=== PATIENT | male | born 1960 | race African-American/Black ===

== ENCOUNTER 2016-09-25 06:39 | Observation (INO) | payer OTHER ==
[2016-09-25] MEDS ORDERED: IPRATROPIUM-ALBUTEROL 3 ML NEB INHALATION STA (06:51)
[2016-09-25] MEDS ORDERED: methylPREDNISolone SOD SUCCI 125 MG/2 ML VIAL IV STA (06:51)
[2016-09-25] MEDS ORDERED: SODIUM CHLORIDE 0.9% 1,000 ML IV STA ×2 (06:51→07:46)
--- NOTE | 2016-09-25 06:56 | ED ---
SOB HPI - General Source: patient, RN notes reviewed Mode of arrival: ambulatory Limitations: no limitations - History of Present Illness MD Complaint: shortness of breath, chest pain <Pepe Thomas - Last Filed: 09/25/16 06:56> <Francisco Art - Last Filed: 09/25/16 10:16> - General Chief Complaint: Shortness of Breath Stated Complaint: SOB Time Seen by Provider: 09/25/16 06:45 - History of Present Illness Initial Comments: This is a 56-year-old male with history of COPD and a history of a aortic dissection status post repair in April of last year who states she's had shortness of breath for both last week. He has had a nonproductive cough also does have a headache he relates this to his COPD and his ALLERGIES act up. His chest tightness he denies any fevers chills sweats. Symptoms are not at all similar to what he had was dissection. He denies any other complaints he does have medication at home is not helping (Pepe Thomas) - Related Data Home Medications Medication Instructions Recorded Confirmed Carvedilol [Coreg] 12.5 mg PO Q12H 10/03/15 09/25/16 Furosemide [Lasix] 40 mg PO DAILY 10/03/15 09/25/16 Lisinopril 40 mg PO DAILY 10/03/15 09/25/16 amLODIPine [Norvasc] 5 mg PO DAILY 03/12/16 09/25/16 Aspirin EC [Ecotrin Low Dose] 81 mg PO DAILY 09/25/16 09/25/16 Atorvastatin [Lipitor] 20 mg PO HS 09/25/16 09/25/16 Beclomethasone Dipropionate [Qvar 1 puff INHALATION RT-BID 09/25/16 09/25/16 80 mcg] Cetirizine HCl [Zyrtec] 10 mg PO DAILY 09/25/16 09/25/16 Ipratropium [place] [Atrovent Hfa] 2 puff INHALATION RT-QID 09/25/16 09/25/16 Previous Rx's Medication Instructions Recorded Nitroglycerin Sl Tabs [Nitrostat] 0.4 mg SUBLINGUAL Q5M PRN #0 tab 03/17/16 Allergies Allergy/AdvReac Type Severity Reaction Status Date / Time No Known Allergies Allergy Verified 09/25/16 07:56 Review of Systems ROS Other: All systems not noted in ROS Statement are negative. <Pepe Thomas - Last Filed: 09/25/16 06:56> ROS Other: All systems not noted in ROS Statement are negative. <Francisco Art - Last Filed: 09/25/16 10:16> ROS Statement: Those systems with pertinent positive or pertinent negative responses have been documented in the HPI. Past Medical History Past Medical History: Asthma, Coronary Artery Disease (CAD), Chest Pain / Angina , Heart Failure, COPD, Hypertension, Myocardial Infarction (SC) Additional Past Medical History / Comment(s): 05/05/15 Pt presented to [facility] ER with back pain radiating around to front "core pain" which started last nite. He noticed some difficulty urinating. He has nausea and one episode of vomiting. He is admitted with clinical impression of acute pyelonephritis, acute renal failure, elevated troponin. Other HX: 10/06/14 admission to [facility] with NSTEMI possibly, severe nonischemic cardiomyopathy, chronic systolic CHF- echo at this time showed EF 35-40% with global hypokinesis. Pt denies these histories, however they are in past medical records. Other hx pt agrees with: COPD, tracheobroncitis, vertigo, heart murmur. Last Myocardial Infarction Date:: ?2014? History of Any Multi-Drug Resistant Organisms: None Reported Past Surgical History: Heart Catheterization Additional Past Surgical History / Comment(s): 10/06/14 cardiac cath, circumcision age 19. Past Anesthesia/Blood Transfusion Reactions: No Reported Reaction Additional Past Anesthesia/Blood Transfusion Reaction / Comment(s): Pt states he has never received blood. Past Psychological History: No Psychological Hx Reported Smoking Status: Current every day smoker Past Alcohol Use History: Occasional Past Drug Use History: Cocaine, Heroin, Marijuana - Past Family History Brother(s) Family Medical History: No Reported History Sister(s) Family Medical History: No Reported History Daughter(s) Family Medical History: No Reported History Mother Family Medical History: Congestive Heart Failure (CHF), Myocardial Infarction ( SC) Additional Family Medical History / Comment(s): Mother at age 34 in her sleep. Father Family Medical History: Cancer, Prostate Disorder Additional Family Medical History / Comment(s): prostate cancer and another type he getting chemo for but not sure what type. <Pepe Thomas - Last Filed: 09/25/16 06:56> General Exam Limitations: no limitations General appearance: alert, anxious Head exam: Present: atraumatic, normocephalic, normal inspection Eye exam: Present: normal appearance, PERRL, EOMI. Absent: scleral icterus, conjunctival injection, periorbital swelling ENT exam: Present: normal exam, mucous membranes moist Neck exam: Present: normal inspection. Absent: tenderness, meningismus, lymphadenopathy Respiratory exam: Present: decreased breath sounds. Absent: respiratory distress, wheezes, rales, rhonchi, stridor Cardiovascular Exam: Present: regular rate, normal rhythm, normal heart sounds. Absent: systolic murmur, diastolic murmur, rubs, gallop, clicks GI/Abdominal exam: Present: soft, normal bowel sounds. Absent: distended, tenderness, guarding, rebound, rigid Extremities exam: Present: normal inspection, full ROM, normal capillary refill. Absent: tenderness, pedal edema, joint swelling, calf tenderness Back exam: Present: normal inspection Neurological exam: Present: alert, oriented X3, CN II-XII intact Psychiatric exam: Present: normal affect, normal mood Skin exam: Present: warm, dry, intact, normal color. Absent: rash <Pepe Thomas - Last Filed: 09/25/16 06:56> <Francisco Art - Last Filed: 09/25/16 10:16> - General Exam Comments Initial Comments: This is a well-developed well-nourished awake alert oriented x 3 male (Pepe Thomas) Course <Pepe Thomas - Last Filed: 09/25/16 06:56> <Francisco Art - Last Filed: 09/25/16 10:16> Vital Signs 09/25/16 09/25/16 09/25/16 06:42 07:14 07:21 Temperature 97.5 F L Pulse Rate 88 81 78 Respiratory 22 18 Rate Blood Pressure 162/98 175/89 O2 Sat by Pulse 98 99 Oximetry 09/25/16 09/25/16 09/25/16 07:28 07:43 08:14 Temperature Pulse Rate 78 70 65 Respiratory 18 16 Rate Blood Pressure 142/87 126/71 O2 Sat by Pulse 98 99 Oximetry 09/25/16 08:44 Temperature Pulse Rate 59 L Respiratory 16 Rate Blood Pressure 145/74 O2 Sat by Pulse 100 Oximetry - Reevaluation(s) Reevaluation #1: 09/25/16 06:56 The patient care will be endorsed to Dr. Art who will make the final disposition is done at our shift change at 7 AM (Pepe Thomas) Medical Decision Making - EKG Data -: EKG Interpreted by Mn EKG shows normal: sinus rhythm (Sinus rhythm rate of 86. Interval 1:30 QRS duration 78 daily since QTC of 388/464 possible left atrial enlargement nonspecific ST configuration artifact is present) <Pepe Thomas - Last Filed: 09/25/16 06:56> - Lab Data Result diagrams: 09/25/16 06:56 09/25/16 06:56 <Francisco Art - Last Filed: 09/25/16 10:16> - Medical Decision Making chest x-ray shows COPD. Patient had a high d-dimer slightly CAT scan of the chest did not show any evidence of PE. (Francisco Art) - Lab Data Lab Results 09/25/16 09/25/16 09/25/16 Range/Units 06:56 06:56 06:56 WBC 7.4 (3.8-10.6) k/uL RBC 4.48 (4.30-5.90) m/uL Hgb 13.4 (13.0-17.5) gm/dL Hct 41.4 (39.0-53.0) % MCV 92.5 (80.0-100.0) fL MCH 29.9 (25.0-35.0) pg MCHC 32.3 (31.0-37.0) g/dL RDW 12.4 (11.5-15.5) % Plt Count 215 (150-450) k/uL Neutrophils % 37 % Lymphocytes % 44 % Monocytes % 5 % Eosinophils % 10 % Basophils % 1 % Neutrophils # 2.8 (1.3-7.7) k/uL Lymphocytes # 3.2 (1.0-4.8) k/uL Monocytes # 0.4 (0-1.0) k/uL Eosinophils # 0.7 (0-0.7) k/uL Basophils # 0.1 (0-0.2) k/uL PT (9.0-12.0) sec INR (<1.1) APTT (22.0-30.0) sec D-Dimer (<0.60) mg/L FEU Sodium 141 (137-145) mmol/L Potassium 4.6 (3.5-5.1) mmol/L Chloride 106 (98-107) mmol/L Carbon Dioxide 24 (22-30) mmol/L Anion Gap 11 mmol/L BUN 24 H (9-20) mg/dL Creatinine 1.52 H (0.66-1.25) mg/dL Est GFR (MDRD) Af Amer 58 (>60 ml/min/1.73 sqM) Est GFR (MDRD) Non-Af 48 (>60 ml/min/1.73 sqM) Glucose 123 H (74-99) mg/dL Calcium 9.4 (8.4-10.2) mg/dL Magnesium 2.0 (1.6-2.3) mg/dL Total Bilirubin 1.4 H (0.2-1.3) mg/dL AST 30 (17-59) U/L ALT 24 (21-72) U/L Alkaline Phosphatase 61 (38-126) U/L Total Creatine Kinase 91 (55-170) U/L CK-MB (CK-2) 1.7 (0.0-2.4) ng/mL CK-MB (CK-2) Rel Index 1.9 Troponin I <0.012 (0.000-0.034) ng/mL NT-Pro-B Natriuret Pep pg/mL Total Protein 7.9 (6.3-8.2) g/dL Albumin 4.4 (3.5-5.0) g/dL 09/25/16 09/25/16 Range/Units 06:56 06:56 WBC (3.8-10.6) k/uL RBC (4.30-5.90) m/uL Hgb (13.0-17.5) gm/dL Hct (39.0-53.0) % MCV (80.0-100.0) fL MCH (25.0-35.0) pg MCHC (31.0-37.0) g/dL RDW (11.5-15.5) % Plt Count (150-450) k/uL Neutrophils % % Lymphocytes % % Monocytes % % Eosinophils % % Basophils % % Neutrophils # (1.3-7.7) k/uL Lymphocytes # (1.0-4.8) k/uL Monocytes # (0-1.0) k/uL Eosinophils # (0-0.7) k/uL Basophils # (0-0.2) k/uL PT 11.1 (9.0-12.0) sec INR 1.1 (<1.1) APTT 29.2 (22.0-30.0) sec D-Dimer 3.40 H (<0.60) mg/L FEU Sodium (137-145) mmol/L Potassium (3.5-5.1) mmol/L Chloride (98-107) mmol/L Carbon Dioxide (22-30) mmol/L Anion Gap mmol/L BUN (9-20) mg/dL Creatinine (0.66-1.25) mg/dL Est GFR (MDRD) Af Amer (>60 ml/min/1.73 sqM) Est GFR (MDRD) Non-Af (>60 ml/min/1.73 sqM) Glucose (74-99) mg/dL Calcium (8.4-10.2) mg/dL Magnesium (1.6-2.3) mg/dL Total Bilirubin (0.2-1.3) mg/dL AST (17-59) U/L ALT (21-72) U/L Alkaline Phosphatase (38-126) U/L Total Creatine Kinase (55-170) U/L CK-MB (CK-2) (0.0-2.4) ng/mL CK-MB (CK-2) Rel Index Troponin I (0.000-0.034) ng/mL NT-Pro-B Natriuret Pep 932 pg/mL Total Protein (6.3-8.2) g/dL Albumin (3.5-5.0) g/dL Disposition <Pepe Thomas - Last Filed: 09/25/16 06:56> Time of Disposition: 10:16 <Francisco Art - Last Filed: 09/25/16 10:16> Clinical Impression: Acute exacerbation of chronic obstructive airways disease Disposition: ADMITTED IP TO THIS HOSP Referrals: Wenceslao Coles MD [Primary Care Provider] - 1-2 days
[2016-09-25 07:17] LABS: Basophils # (A) 0.1 k/uL (0-0.2); Basophils % (A) 1 %; CH 29.9; CHCM 32.4; Eosinophils # (A) 0.7 k/uL (0-0.7); Eosinophils % (A) 10 %; HCT 41.4 % (39.0-53.0); HDW 2.31; HGB 13.4 gm/dL (13.0-17.5); Luc # (Auto) 0.24; Luc % (Auto) 3; Lymphocytes # (A) 3.2 k/uL (1.0-4.8); Lymphocytes % (A) 44 %; MCH 29.9 pg (25.0-35.0); MCHC 32.3 g/dL (31.0-37.0); MCV 92.5 fL (80.0-100.0); Mean Platelet Volume 7.2; Monocytes # (A) 0.4 k/uL (0-1.0); Monocytes % (A) 5 %; Neutrophils # (A) 2.8 k/uL (1.3-7.7); Neutrophils % (A) 37 %; RBC 4.48 m/uL (4.30-5.90); RDW 12.4 % (11.5-15.5); WBC 7.4 k/uL (3.8-10.6); WBC (Perox) 7.28
[2016-09-25 07:26] LABS: Calcium 9.4 mg/dL (8.4-10.2); Total Bilirubin 1.4 mg/dL (0.2-1.3); Total Protein 7.9 g/dL (6.3-8.2)
[2016-09-25 07:27] LABS: INR 1.1 (<1.1); Partial Thromboplastin Time 29.2 sec (22.0-30.0); Prothrombin Time 11.1 sec (9.0-12.0)
[2016-09-25 07:32] LABS: Potassium 4.6 mmol/L (3.5-5.1)
--- NOTE | 2016-09-25 07:33 | XR ---
EXAMINATION TYPE: XR chest 2V DATE OF EXAM: 09/25/2016 HISTORY: difficulty breathing. REFERENCE: Previous study dated 03/15/2016. FINDINGS: There has been a midline sternotomy. Surgical clips project over the right upper lobe. The lungs are overinflated but clear. Pleural spaces are clear. The heart is not enlarged. IMPRESSION: COPD.
[2016-09-25 07:38] LABS: Creatine Kinase 91 U/L (55-170)
[2016-09-25] MEDS ORDERED: ONDANSETRON 4 MG/2 ML VIAL IVP STA (07:46)
[2016-09-25] MEDS ORDERED: HYDROmorphone 1 MG/ML 1 ML SYRINGE IVP STA (07:46)
[2016-09-25 07:50] LABS: Creatine Kinase MB 1.7 ng/mL (0.0-2.4); Troponin I <0.012 ng/mL (0.000-0.034)
[2016-09-25] MEDS ORDERED: RX INFO: IV CONTRAST WAS GIVEN 1 EACH MISC MISCELLANE PRN (08:40)
[2016-09-25] MEDS ORDERED: SODIUM CHLORIDE 0.9% 1,000 ML IV ONE (08:41)
--- NOTE | 2016-09-25 09:58 | CT ---
EXAMINATION TYPE: CT chest angio for PE DATE OF EXAM: 09/25/2016 COMPARISON: CTA chest March 12, 2016 HISTORY: SOB and elevated d-dimer, history of aorta repair CT DLP: 408.6 mGycm. Automated Exposure Control for Dose Reduction was Utilized. CONTRAST: CTA scan of the thorax is performed with IV Contrast, patient injected with 90 mL of Visipaque 320, p ulmonary embolism protocol. MIP Images are created on CT scanner and reviewed. FINDINGS: LUNGS: Underlying emphysematous change is redemonstrated. There is right apical scarring. There is no suspicious consolidation or groundglass opacity. No concerning parenchymal nodule or mass is present . No pleural effusion or pneumothorax is seen. Mild central peribronchial thickening is redemonstrate d. MEDIASTINUM: There is satisfactory enhancement of the pulmonary artery and its branches, there is no CT evidence for pulmonary embolism. There are no greater than 1 cm hilar or mediastinal lymph nodes. No cardiomegaly or pericardial effusion is seen. There is left ventricular dilatation and hypertro phy redemonstrated causing mass effect on right ventricle. Sternotomy changes are again seen. There i s surgical change at aortic root and ascending aorta with patent stent graft redemonstrated at site o f aneurysm. No significant change from prior study is identified. Coronary artery calcification is re demonstrated. OTHER: Some multilevel spurring in the thoracic spine is redemonstrated. IMPRESSION: 1. No CT evidence for pulmonary embolism. 2. No suspicious new acute pulmonary process. 3. Postsurgical changes involving ascending aorta with dilated and hypertrophic left ventricle causin g mass effect on right ventricle redemonstrated.
[2016-09-25 12:06] LABS: Glucose,Whole Blood 170 mg/dL (75-99)
[2016-09-25] MEDS: methylPREDNISolone SOD SUCCI 125 MG/2 ML VIAL IV SCH ×3 (12:39→23:48)
[2016-09-25] MEDS: INSULIN LISPRO (humaLOG) 300 UNIT/3 ML VIAL SQ SCH ×3 (12:39→20:50)
[2016-09-25 13:53] LABS: Hemoglobin A1C 4.7 % (4.2-6.1)
[2016-09-25] MEDS: IPRATROPIUM-ALBUTEROL 3 ML NEB INHALATION PRN (15:32)
[2016-09-25 17:25] LABS: Glucose,Whole Blood 152 mg/dL (75-99)
[2016-09-25 20:40] LABS: Glucose,Whole Blood 183 mg/dL (75-99)
[2016-09-25] MEDS: MELATONIN 5 MG TABLET PO SCH (23:47)
[2016-09-26] MEDS: methylPREDNISolone SOD SUCCI 125 MG/2 ML VIAL IV SCH ×2 (05:55→12:36)
[2016-09-26 07:16] LABS: Glucose,Whole Blood 119 mg/dL (75-99)
[2016-09-26] MEDS: INSULIN LISPRO (humaLOG) 300 UNIT/3 ML VIAL SQ SCH ×4 (07:24→21:31)
[2016-09-26] MEDS: IPRATROPIUM-ALBUTEROL 3 ML NEB INHALATION PRN (07:26)
[2016-09-26] MEDS ORDERED: NITROGLYCERIN SL TABS 0.4 MG TAB SUBLINGUAL PRN (08:35)
[2016-09-26] MEDS: LISINOPRIL 20 MG TAB PO SCH (09:15)
[2016-09-26] MEDS: LORATADINE 10 MG TAB PO SCH (09:16)
[2016-09-26] MEDS: ASPIRIN 81 MG CHEW PO SCH (09:16)
[2016-09-26] MEDS: FUROSEMIDE 40 MG TAB PO SCH (09:16)
[2016-09-26] MEDS: CARVEDILOL 12.5 MG TAB PO SCH ×2 (09:16→17:35)
[2016-09-26] MEDS: amLODIPine 5 MG TAB PO SCH (09:16)
[2016-09-26 12:27] LABS: Glucose,Whole Blood 131 mg/dL (75-99)
--- NOTE | 2016-09-26 12:31 | HP ---
DATE OF ADMISSION: CHIEF COMPLAINT: A 56-year-old white male with shortness of breath, chest pain. HISTORY OF PRESENT ILLNESS: This 56-year-old white male with a history of smoking, aortic dissection status post repair in April of last year with shortness of breath for the past week, nonproductive cough. He says it is probably due to COPD, made worse by allergies this spring. Symptoms were not similar to what his dissection was. CT of the chest did not show any evidence of any dissection issues. HOME MEDICATIONS: 1. He is on Coreg 12.5 b.i.d. 2. Lasix 40 mg daily. 3. Lisinopril 40 mg daily. 4. Norvasc 5 mg daily. 5. Aspirin 81 daily. 6. Lipitor 20 daily. 7. Qvar 80 one puff b.i.d. 8. Zyrtec 10 daily. 9. Atrovent 2 puffs q.i.d. ALLERGIES: No known drug allergies. REVIEW OF SYSTEMS: Fourteen-point review of systems negative except for as mentioned in HPI. PAST MEDICAL HISTORY: Asthma, COPD, coronary artery disease, aortic dissection repair, hypertension, myocardial infarction, history of pyelonephritis and renal failure back in 2014, non-STEMI, severe ischemic cardiomyopathy, chronic systolic CHF, 35% to 40% ejection fraction at that time, history of COPD, tracheobronchitis, vertigo, heart murmur. PAST SURGICAL HISTORY: Heart catheterization. DRUG HISTORY: Cocaine, heroin and marijuana. A current every day smoker. Brother and sister are healthy. Daughter healthy. Mother CHF, myocardial infarction. Father prostate disorder. PHYSICAL EXAM: Vital signs are reviewed. CONSTITUTIONAL: He is alert, in no acute distress. CARDIOVASCULAR: S1, S2. LUNGS: Show scattered wheeze x4. HEMATOLOGIC: Negative Homans. PSYCH: Fair mood and affect. NEUROLOGIC: Alert and oriented x3. INTEGUMENT: Skin dry and intact Vital signs show temperature 97.5, pulse 78 to 88, blood pressure is 160s to 170s over 80s to 90s, O2 sat is 98% to 99% on 2 L. EKG shows sinus rhythm. CT of the chest is as mentioned above. BUN 24, creatinine 1.52. Chest x-ray ( ) chest is negative. ASSESSMENT: 1. Acute chronic obstructive pulmonary disease exacerbation. 2. Acute on chronic renal insufficiency stage III. 3. Hypertension. 4. Status post aortic dissection repair. 5. Possible some mild congestive heart failure. 6. History of systolic ischemic cardiomyopathy. PLAN: IV steroids, updraft treatments, pulmonary consult. Please see further orders.
--- NOTE | 2016-09-26 12:33 | P.PN ---
Subjective 56 show male presented to the emergency room on the day of admission with a chief complaint of developing shortness of breath. Patient stated it onset 1 week prior. He feels like he's been exposed to a lot of ALLERGIES is concerned also there may be mold in his apartment seen in the emergency room did note the blood pressure was elevated 175/89 heart rate in the 80s afebrile patient did have a CAT scan of his chest in the emergency room and showed no evidence for a pulmonary emboli. There was no suspicious new acute pulmonary process. Postsurgical changes involving the ascending aorta were noted patient was seen and evaluated and admitted to the attending with the pulmonary consultation requested Objective - Vital Signs Vital signs: Vital Signs Temp 97.3 F L 09/26/16 07:00 Pulse 88 09/26/16 07:38 Resp 20 09/26/16 07:28 BP 145/87 09/26/16 07:00 Pulse Ox 94 L 09/26/16 07:00 Intake & Output 09/25/16 09/26/16 09/26/16 18:59 06:59 18:59 Intake Total 225 Balance 225 Intake: IV 225 Sodium Chloride 0.9% 1, 225 000 ml @ 75 mls/hr IV . [id number] STA Rx#:[id number] Other: # Voids 1 2 # Bowel Movements 0 - Exam GENERAL APPEARANCE: 56-year-old Afro-[place] male patient is alert, oriented, in no acute distress. VITAL SIGNS: Reviewed HEENT: Head is normocephalic and atraumatic. Pupils are equal and reactive. The nares are patent. Oropharynx is clear without lesions. NECK: Supple without lymphadenopathy. Traches midline. HEART: S1, S2. Regular rate and rhythm. No murmur noted denying chest pain LUNGS: No crackles or wheezes are heard. Adequate air entry bilaterally no conversational dyspnea noted no cough noted on room air sats are 94% ABDOMEN: Soft, nontender, nondistended with good bowel sounds. No peritoneal signs. No palpable organomegaly or masses. EXTREMITIES: Normal skin color and turgor. No cyanosis, rash, ulceration, clubbing or edema. Radial pedal pulses are 2/4 bilaterally. NEUROLOGICAL: No focal deficits. Strength and sensation are grossly intact. - Labs CBC & Chem 7: 09/25/16 06:56 09/25/16 06:56 Labs: Abnormal Lab Results - Last 24 Hours (Table) 09/25/16 09/25/16 09/26/16 Range/Units 17:14 20:39 06:57 POC Glucose (mg/dL) 152 H 183 H 119 H (75-99) mg/dL Assessment and Plan Plan: Impression Present on admission shortness of breath suspect due to an exacerbation of COPD Present on admission elevated d-dimer with a CAT scan of the chest showing no evidence of a pulmonary emboli Seasonal ALLERGIES History of Exposure to mold History of aortic dissection status post repair in April 2015 History of COPD Current every day smoker Plan Patient to be evaluated by pulmonary service defer to possible outpatient workup pulmonary function studies patient states he's never been to a mold finisher Resume home meds as appropriate Continue current aerosol bronchodilators Taper the steroids Prepped for probable discharge in the next 24 hours DVT and GI prophylaxis advised patient to stop smoking cigarettes The above dictated assessment and findings were discussed with dr lopez Impression and the plan of care have been dictated as directed. Ramonita Siu nurse practitioner acting as a scribe for dr lopez
[2016-09-26] MEDS: IPRATROPIUM 0.5 MG/2.5 ML NEBU INHALATION SCH ×3 (13:10→19:59)
[2016-09-26 17:03] LABS: Glucose,Whole Blood 130 mg/dL (75-99)
--- NOTE | 2016-09-26 17:42 | CONS ---
DATE OF CONSULTATION: This patient is a 56-year-old male with a history of asthma since his childhood. He subsequently was told that he had COPD as well. He has a known history of smoking and came into the ED with increasing shortness of breath for about a week's duration. He believes he may have been exposed to mold in his house. He had been wheezing. He had no fever or chills. Past medical history is positive for: 1. Asthma since his childhood. 2. History of coronary artery disease. 3. History of aortic dissection diagnosed about a year and a half ago, for which he had emergent surgery. 4. History of acute renal failure in the past. 5. Acute pyelonephritis. 6. History of severe non-ischemic cardiomyopathy with an EF of 35% to 40% with global hypokinesis. 7. History of cardiac catheterization. 8. Circumcision. FAMILY HISTORY: Positive for CHF in his mother. Father has a history of prostate cancer and another type of cancer. SOCIAL HISTORY: Patient has a known history of smoking. He does not drink alcohol excessively. Medications prior to admission were: 1. Lipitor. 2. Norvasc. 3. Nitrostat. 4. Zyrtec. 5. Ecotrin. 6. Lisinopril. 7. Atrovent HFA. 8. Lasix. 9. Coreg. 10. Qvar. REVIEW OF SYSTEMS: Noncontributory. On physical examination, patient is sitting up in bed. He is in no respiratory distress. Respiratory rate is 18, pulse rate of 90, blood pressure 145/87. Oxygen saturation on room air is 94%. HEENT reveals pupils that are equal. No jugular venous distention. Chest reveals decreased breath sounds, prolonged expiration. No clear wheeze. Cardiovascular system is in S1, S2. ABDOMEN: Soft. There is no pedal edema. White count is 7.4, hemoglobin 13.4. Sodium 141, potassium 4.6, chloride 106, bicarb 24. BUN 24, creatinine 1.52. Eosinophil count is 700. CT scan of the chest was done on 09/25/2016. That does not show any discrete infiltrate. It does show postsurgical changes and hypertrophic left ventricle. There is right apical scarring as well. IMPRESSION AT THIS TIME: 1. Severe asthma with acute exacerbation. 2. Chronic obstructive pulmonary disease is likely. 3. Nicotine dependence. At this point in time, would keep the patient on IV steroids, add Singulair and aerosolized steroids. Check an allergy profile. Increase his activity level. We will be happy to see him in the outpatient setting if need be. He was counseled on the need to quit smoking.
[2016-09-26] MEDS: BUDESONIDE 0.5 MG/2 ML NEBU INHALATION SCH (19:59)
[2016-09-26 20:56] LABS: Glucose,Whole Blood 142 mg/dL (75-99)
[2016-09-26] MEDS ORDERED: MONTELUKAST 10 MG TAB PO SCH (21:00)
[2016-09-26] MEDS ORDERED: methylPREDNISolone SOD SUCCI 40 MG/ML 1 ML VIAL IV SCH (21:00)
[2016-09-26] MEDS ORDERED: ATORVASTATIN 20 MG TAB PO SCH (21:00)
[2016-09-26] MEDS: FAMOTIDINE 20 MG TAB PO SCH (21:30)
[2016-09-26] MEDS: HEPARIN SODIUM,PORCINE 5,000 UNIT/ML 1 ML VIAL SQ SCH (21:44)
[2016-09-26] MEDS: MELATONIN 5 MG TABLET PO SCH (23:50)
[2016-09-27 07:15] LABS: Glucose,Whole Blood 111 mg/dL (75-99)
[2016-09-27 07:53] VITALS: BP 145/97; RESP 18; TEMP 97
[2016-09-27] MEDS: INSULIN LISPRO (humaLOG) 300 UNIT/3 ML VIAL SQ SCH (08:04)
[2016-09-27] MEDS: FUROSEMIDE 40 MG TAB PO SCH (08:06)
[2016-09-27] MEDS: CARVEDILOL 12.5 MG TAB PO SCH (08:06)
[2016-09-27] MEDS: ASPIRIN 81 MG CHEW PO SCH (08:06)
[2016-09-27] MEDS: LISINOPRIL 20 MG TAB PO SCH (08:06)
[2016-09-27] MEDS: LORATADINE 10 MG TAB PO SCH (08:06)
[2016-09-27] MEDS: HEPARIN SODIUM,PORCINE 5,000 UNIT/ML 1 ML VIAL SQ SCH (08:06)
[2016-09-27] MEDS: FAMOTIDINE 20 MG TAB PO SCH (08:06)
[2016-09-27] MEDS: amLODIPine 5 MG TAB PO SCH (08:07)
[2016-09-27] MEDS: BUDESONIDE 0.5 MG/2 ML NEBU INHALATION SCH (08:39)
[2016-09-27] MEDS: IPRATROPIUM 0.5 MG/2.5 ML NEBU INHALATION SCH (08:42)
[2016-09-27 08:55] VITALS: PULSE 74
[2016-09-27] MEDS ORDERED: predniSONE 20 MG TAB PO SCH (09:00)
--- NOTE | 2016-09-27 09:08 | P.DS ---
Providers Date of admission: 09/25/16 10:16 Expected date of discharge: 09/27/16 Attending physician: Chance Lopez Consults: 09/25/16 13:30 Consult Physician Urgent Consulting Provider: Marylou Ochoa Consult Reason/Comments: copd ? bronch for ? mold Do you want consulting provider notified?: Yes Primary care physician: [facility] Course: 56 show male presented to the emergency room on the day of admission with a chief complaint of developing shortness of breath. Patient stated it onset 1 week prior. He feels like he's been exposed to a lot of ALLERGIES is concerned also there may be mold in his apartment seen in the emergency room did note the blood pressure was elevated 175/89 heart rate in the 80s afebrile patient did have a CAT scan of his chest in the emergency room and showed no evidence for a pulmonary emboli. There was no suspicious new acute pulmonary process. Postsurgical changes involving the ascending aorta were noted patient was seen and evaluated and admitted to the attending with the pulmonary consultation requested There was a significant improvement in patient's clinical status it was felt to be appropriate to be discharged home Impression discharge diagnosis Impression Present on admission shortness of breath suspect due to an exacerbation of COPD Present on admission elevated d-dimer with a CAT scan of the chest showing no evidence of a pulmonary emboli Seasonal ALLERGIES History of Exposure to mold History of aortic dissection status post repair in April 2015 History of COPD Current every day smoker The above dictated assessment and findings were discussed with dr lopez Impression and the plan of care have been dictated as directed. Ramonita Siu nurse practitioner acting as a scribe for dr lopez Plan - Discharge Summary New Discharge Prescriptions: New methylPREDNISolone Dose Pack [Medrol Dose Pack] 4 mg PO DIRECTED #21 package Continue Lisinopril 40 mg PO DAILY Furosemide [Lasix] 40 mg PO DAILY Carvedilol [Coreg] 12.5 mg PO Q12H amLODIPine [Norvasc] 5 mg PO DAILY Nitroglycerin Sl Tabs [Nitrostat] 0.4 mg SUBLINGUAL Q5M PRN #0 tab PRN Reason: Chest Pain Beclomethasone Dipropionate [Qvar 80 mcg] 1 puff INHALATION RT-BID Ipratropium [place] [Atrovent Hfa] 2 puff INHALATION RT-QID Cetirizine HCl [Zyrtec] 10 mg PO DAILY Atorvastatin [Lipitor] 20 mg PO HS Aspirin EC [Ecotrin Low Dose] 81 mg PO DAILY Discharge Medication List Carvedilol [Coreg] 12.5 mg PO Q12H 10/03/15 [History] Furosemide [Lasix] 40 mg PO DAILY 10/03/15 [History] Lisinopril 40 mg PO DAILY 10/03/15 [History] amLODIPine [Norvasc] 5 mg PO DAILY 03/12/16 [History] Nitroglycerin Sl Tabs [Nitrostat] 0.4 mg SUBLINGUAL Q5M PRN #0 tab 03/17/16 [Rx] Aspirin EC [Ecotrin Low Dose] 81 mg PO DAILY 09/25/16 [History] Atorvastatin [Lipitor] 20 mg PO HS 09/25/16 [History] Beclomethasone Dipropionate [Qvar 80 mcg] 1 puff INHALATION RT-BID 09/25/16 [ History] Cetirizine HCl [Zyrtec] 10 mg PO DAILY 09/25/16 [History] Ipratropium [place] [Atrovent Hfa] 2 puff INHALATION RT-QID 09/25/16 [History] methylPREDNISolone Dose Pack [Medrol Dose Pack] 4 mg PO DIRECTED #21 package 09/27/16 [Rx] Follow up Appointment(s)/Referral(s): Wenceslao Coles MD [Primary Care Provider] - 1-2 days Discharge Disposition: HOME SELF-CARE
[2016-09-30 12:25] LABS: Alternaria alternata IgE <0.35 kU/L (<0.35); Asperg. fumagatus IgE <0.35 kU/L (<0.35); Asperg. fumagatus IgE Class CLASS 0; Birch(Com.Silvr) IgE Class CLASS 0; Cat Epith & Dander IgE 1.15 kU/L (<0.35); Cat Epith & Dander IgE Class CLASS II; Clad herbarum IgE <0.35 kU/L (<0.35); Clad herbarum IgE Class CLASS 0; Common Ragweed IgE Class CLASS II; Dermato. Pteronyssinus Class CLASS 0; Dermato. Pteronyssinus IgE <0.35 kU/L (<0.35); Dermato. farinae IgE <0.35 kU/L (<0.35); Dermato. farinae IgE Class CLASS 0; IgE (Allergen) 95.5 IU/mL (<114.0); Maple (Box Elder) IgE <0.35 kU/L (<0.35); Maple (Box Elder) IgE Class CLASS 0; Mountain Cedar IgE <0.35 kU/L (<0.35); Mountain Cedar IgE Class CLASS 0; Mouse Urine IgE Class CLASS 0; Mouse Urine Proteins,IgE <0.35 kU/L (<0.35); Mulberry IgE Class CLASS 0; Nettle IgE <0.35 kU/L (<0.35); Nettle IgE Class CLASS 0; Oak IgE <0.35 kU/L (<0.35); Penicillium notatum IgE Class CLASS 0; Rough Marshelder IgE 0.44 kU/L (<0.35); Rough Marshelder IgE Class CLASS I; Timothy Grass IgE 5.79 kU/L (<0.35); Timothy Grass IgE Class CLASS III; White Ash IgE Class CLASS 0
[2016-10-07 13:44] LABS: Alternaria tenius IgG 9.3 mcg/mL (< 13.6); Cladosporium herbarium IgG 78.5 mcg/mL (< 14.7); Phoma ssp. IgG 13.9 mcg/mL (< 6.6); Saccaharomospora viridis Not detected (Not detected); Saccaharopoly. rectivirgula Not detected (Not detected)
== END 2016-09-27 09:31 | disposition home or self-care (01) ==
LOC: EC 06:39 → INTOOBSV 10:16 → 4MS4W 10:16
PROVIDERS: ADMIT Family Medicine; ATTEND Family Medicine
DX: R06.02 Shortness of breath (principal); R07.9 Chest pain, unspecified; R51 Headache; J44.1 Chronic obstructive pulmonary disease with (acute) exacerbation; R79.89 Other specified abnormal findings of blood chemistry; J45.909 Unspecified asthma, uncomplicated; F17.200 Nicotine dependence, unspecified, uncomplicated; I25.5 Ischemic cardiomyopathy; I50.22 Chronic systolic (congestive) heart failure; I13.0 Hypertensive heart and chronic kidney disease with heart failure and stage 1 through stage 4 chronic kidney disease, or unspecified chronic kidney disease; N18.3 Chronic kidney disease, stage 3 (moderate); N28.9 Disorder of kidney and ureter, unspecified; I25.10 Atherosclerotic heart disease of native coronary artery without angina pectoris; Z79.899 Other long term (current) drug therapy; Z79.82 Long term (current) use of aspirin; Z79.51 Long term (current) use of inhaled steroids; I25.2 Old myocardial infarction; Z82.49 Family history of ischemic heart disease and other diseases of the circulatory system; Z77.120 Contact with and (suspected) exposure to mold (toxic)
CPT/HCPCS: 96376 ×2; 96361 ×3; 96374; 99285; 36415; 94640 ×5; 93005; 85379; 82103; 82785 ×2; 86003; 83880; 80053; 86001; 82104; 84443; 83036; 82550; 82553; 83735; 84484; 85025; 85610; 85730; 86609; 86606; 71020; 71275; G0378 ×3; J1644; J2920; J2930 ×2; Q9967

== ENCOUNTER → 2018-08-26 | Outpatient (CLI) | payer MEDICARE ==
--- NOTE | 2018-08-26 11:49 | CT ---
EXAMINATION TYPE: CT chest abdomen w con DATE OF EXAM: 08/26/2018 COMPARISON: Exams dating back to 05/05/2015 HISTORY: AAA CT DLP: 1059.00 mGycm. Automated Exposure Control for Dose Reduction was Utilized. CONTRAST: CT scan of the thorax and abdomen were performed with IV Contrast, patient injected with 100 ml mL of Isovue 300. FINDINGS: LUNGS: Paraseptal bulla are seen at the lung apices with moderate underlying centrilobular emphysemat ous change create minimal biapical pleural parenchymal scarring is also present. The lungs are grossl y clear, there is no concerning parenchymal mass or nodule identified. There is no pleural effusion or pneumothorax seen. The tracheobronchial tree is patent. VASCULAR: There is been surgical repair of the aortic arch, with high density seen on the prior imagi ng dating back to 03/12/2016 at the lateral aspect of the aortic arch. This is also subtly seen althou gh similar to the adjacent contrast attenuation. There is a normal variant direct origin of the left vertebral artery from the aortic arch. At the site of prior surgical intervention there is a linear i ntimal flap that is focal within the aortic arch partially seen on axial series 4 image 15 and confir med on coronal series 8 image 58. There are recent no prior exams available at this institution where contrast opacified the aortic arch to determine if this is chronic however on the exam of 2016 (08/16 this focal dissection was not present. In comparison to the exam of 2016 there is focal saccula r outpouching of the left lateral aspect of the ascending thoracic aorta with the appearance of a pen etrating atheromatous ulcer versus pseudoaneurysm with a narrow neck on coronal image 50 of series 8 is also seen on axial on series 4 image 20. The ulcer versus pseudoaneurysm measures 2.0 cm and the o utpouching projecting towards the aorticopulmonary window on image 23 measures 2.6 cm. The ascending thoracic aorta measures 5.1 cm in anterior posterior dimension overall measuring smaller than on the prior of 08/17/2015 possibly due to redistribution given the new left abnormal outpouching. The [place] lumen of the descending thoracic aorta has increased in size previously diminutive measuri ng 1.6 cm on the prior of 08/17/2015 and now approximately 2.6 cm. There are punctate foci of contrast seen surrounding the descending aorta such as on series 4 image 52 within the periaortic fluid colle ction relating to endoleak. Chronic dissection is seen of the abdominal aorta and addition to the periaortic fluid collection wit h 3 separate densities on series 4 image 79. In comparison to the most recent exam available at on although this was a chest examination the visualized upper abdominal aorta measured only 3.2 cm and anterior posterior dimension and now measures 3.7 cm at a similar location. In comparison to t he CT abdomen pelvis of 2016 without contrast the approximate anterior posterior dimension of the inf rarenal abdominal aorta on that exam measured 4.0 cm and today measures 6.1 cm area transverse dimens ion measures 5.9 cm. This begins at the level the renal arteries and extends to the bifurcation witho ut extent into the common iliac arteries however the common iliac arteries themselves are dilated mor e distally aneurysm on the left measuring 2.2 cm and on the right measuring 2.2 cm. LIVER/GB: No significant abnormality is appreciated. No cholelithiasis is seen. PANCREAS: No significant abnormality is seen. No pancreatic ductal dilatation. SPLEEN: No significant abnormality is seen. ADRENALS: No significant abnormality is seen. No focal thickening or nodularity. KIDNEYS: The left kidney is slightly atrophic in comparison to the size of the right kidney. The felicit[place] l arteries appear patent originating from the [place] aortic lumen. BOWEL: No dilated large or small bowel. LYMPH NODES: No greater than 1cm abdominal or pelvic lymph nodes are appreciated. OSSEOUS STRUCTURES: Median sternotomy wires are present. Mild multilevel degenerative change of the s pine. IMPRESSION: 1. Age indeterminant focal dissection of the aortic arch at the site of surgical resection that is fo sravanthi and localized to the aortic arch. 2. 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 3. There appears to be redistribution of the periaortic fluid collection/aneurysm of the ascending th oracic aorta with new left lateral focal outpouching towards the aorticopulmonary window and more conrado row caliber in an anterior posterior dimension than on the prior of 2016. 4. Findings concerning for endoleak of the descending thoracic aorta with numerous foci of contrast e xtending into the periaortic fluid collection. 5. Interval enlargement of the abdominal aortic aneurysm now measuring up to 6.1 x 5.9 cm with chroni c dissection and periaortic fluid collection. The anterior posterior dimension on the exam of 05/05/19 16 measured 4.0 cm. This was suboptimally evaluated at the time without contrast and appears to measu re 4.7 cm in transverse dimension on that exam. 6. 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 7. Findings 1-6 were discussed with the ordering physician's office (Dr. Sewell) by Dr. Long at 11:45 on 08/26/18.
== END | disposition home or self-care (01) ==
LOC: RADCTMAIN 08:49
PROVIDERS: ATTEND Internal Medicine Cardiovascular Disease
DX: I71.4 Abdominal aortic aneurysm, without rupture (principal); I71.00 Dissection of unspecified site of aorta; I72.3 Aneurysm of iliac artery; Z98.890 Other specified postprocedural states
CPT/HCPCS: 71260; 74160; Q9967

== ENCOUNTER 2018-09-04 18:09 | Emergency (ER) | payer MEDICARE, OTHER ==
[2018-09-04] MEDS ORDERED: IPRATROPIUM-ALBUTEROL 3 ML NEB INHALATION STA (18:37)
[2018-09-04] MEDS ORDERED: methylPREDNISolone SOD SUCCI 125 MG/2 ML VIAL IM STA (18:57)
[2018-09-04] MEDS ORDERED: ACETAMINOPHEN TAB 325 MG TAB PO STA (19:08)
--- NOTE | 2018-09-04 19:39 | XR ---
EXAMINATION TYPE: XR chest 2V DATE OF EXAM: 09/04/2018 COMPARISON: 09/25/2016 HISTORY: Chest tightness TECHNIQUE: Frontal and lateral views of the chest are obtained. FINDINGS: There is no heart failure nor confluent pneumonic infiltrate. There are sternal wires. Tho racic aorta is atheromatous. Bony thorax is intact. There are surgical clips over the right upper lob e. IMPRESSION: No active cardiopulmonary disease. Normal heart. No change.
--- NOTE | 2018-09-04 20:24 | ED ---
General Adult HPI - General Chief complaint: Shortness of Breath Stated complaint: SOB Time Seen by Provider: 09/04/18 18:37 Source: EMS, RN notes reviewed, old records reviewed Mode of arrival: EMS - History of Present Illness Initial comments: 58-year-old male patient passed no history of hypertension, COPD, asthma, aortic dissection status post graft presents to ED with 1 day of wheezing, shortness of breath. Patient reports that he was doing her work outside with a mask on and started expressing asthma exacerbation. Patient reports that he was wheezing and having some mild shortness of breath. Patient force of this feels similar to asthma that he has experienced in the past. Patient has a history complaining of a mild headache. Patient reports that he often expresses headaches and he has a asthma exacerbation. Patient denies worst headache of life. Patient states that headache was progressive onset, denies thunderclap. Patient states that is a pressure sensation intact occipital lobe region. Patient denies any changes in vision. Patient denies any other complaints. Patient denies any chest pain abdominal pain nausea vomiting or diarrhea. Systemic: Pt denies fatigue, myalgia, fever/chills, rash. Pt denies weakness, night sweats, weight loss. Neuro: Pt denies visual disturbances, syncope or pre-syncope. HEENT: Pt denies ocular discharge or irritation, otalgia, rhinorrhea, pharyngitis or notable lymphadenopathy. Cardiopulmonary: Pt denies chest pain, heart palpitations, dyspnea on exertion. Abdominal/GI: Pt denies abdominal pain, n/v/d. : Pt denies dysuria, burning w/ urination, frequency/urgency. Denies new onset urinary or bowel incontinence. MSK: Pt denies myalgia, loss of strength or function in extremities. Neuro: Pt denies new onset weakness, paresthesias. - Related Data Home Medications Medication Instructions Recorded Confirmed Carvedilol [Coreg] 12.5 mg PO Q12H 10/03/15 09/25/16 Furosemide [Lasix] 40 mg PO DAILY 10/03/15 09/25/16 Lisinopril 40 mg PO DAILY 10/03/15 09/25/16 amLODIPine [Norvasc] 5 mg PO DAILY 03/12/16 09/25/16 Aspirin EC [Ecotrin Low Dose] 81 mg PO DAILY 09/25/16 09/25/16 Atorvastatin [Lipitor] 20 mg PO HS 09/25/16 09/25/16 Beclomethasone Dipropionate [Qvar 1 puff INHALATION RT-BID 09/25/16 09/25/16 80 mcg] Cetirizine HCl [Zyrtec] 10 mg PO DAILY 09/25/16 09/25/16 Ipratropium [place] [Atrovent Hfa] 2 puff INHALATION RT-QID 09/25/16 09/25/16 Previous Rx's Medication Instructions Recorded Nitroglycerin Sl Tabs [Nitrostat] 0.4 mg SUBLINGUAL Q5M PRN #0 tab 03/17/16 methylPREDNISolone Dose Pack 4 mg PO DIRECTED #21 package 09/27/16 [Medrol Dose Pack] Albuterol Inhaler [Ventolin Hfa 1 - 2 puff INHALATION Q4-6H PRN #1 09/04/18 Inhaler] inhaler predniSONE 50 mg PO DAILY #4 tab 09/04/18 Allergies Allergy/AdvReac Type Severity Reaction Status Date / Time No Known Allergies Allergy Verified 09/25/16 07:56 Review of Systems ROS Statement: Those systems with pertinent positive or pertinent negative responses have been documented in the HPI. ROS Other: All systems not noted in ROS Statement are negative. Past Medical History Past Medical History: Asthma, Coronary Artery Disease (CAD), Chest Pain / Angina, Heart Failure, COPD, Hypertension, Myocardial Infarction (PA) Additional Past Medical History / Comment(s): Other HX: 10/06/14 admission to [facility] with NSTEMI possibly, severe nonischemic cardiomyopathy, chronic systolic CHF-echo at this time showed EF 35-40% with global hypokinesis. Pt denies t hese histories, however they are in past medical records. Other hx pt agrees with: COPD, tracheobroncitis, vertigo, heart murmur. Last Myocardial Infarction Date:: ?2014? History of Any Multi-Drug Resistant Organisms: None Reported Past Surgical History: Heart Catheterization Additional Past Surgical History / Comment(s): 04/2016 AORTIC DISECTION. 10/06/14 cardiac cath, circumcision age 19. COLONOSCOPY Past Anesthesia/Blood Transfusion Reactions: No Reported Reaction Additional Past Anesthesia/Blood Transfusion Reaction / Comment(s): Pt states he has never received blood. Past Psychological History: No Psychological Hx Reported Smoking Status: Former smoker Past Alcohol Use History: Rare Past Drug Use History: Cocaine, Heroin, Marijuana - Past Family History Brother(s) Family Medical History: No Reported History Sister(s) Family Medical History: Diabetes Mellitus Daughter(s) Family Medical History: No Reported History Mother Family Medical History: Congestive Heart Failure (CHF), Myocardial Infarction (PA) Additional Family Medical History / Comment(s): Mother at age 34 in her sleep. Father Family Medical History: Cancer, Prostate Disorder Additional Family Medical History / Comment(s): prostate cancer and . General Exam - General Exam Comments Initial Comments: Constitutional: NAD, AOX3, Pt has pleasant affect. HEENT: NC/AT, trachea midline, neck supple, no lymphadenopathy. Posterior pharynx non erythematous, without exudates. External ears appear normal, without discharge. Mucous membranes moist. Eyes PERRLA, EOM intact. There is no scleral icterus. No pallor noted. Cardiopulmonary: RRR, no murmurs, rubs or gallops, no JVD noted. Mild wheezing noted in anterior and posterior khoury after breathing treatment.. Lungs CTAB in anterior and posterior khoury. No peripheral edema. Abdominal exam: Abdomen soft and non-distended. Abdomen non-tender to palpation in all 4 quadrants. Bowel sounds active in LLQ. No hepatosplenomegaly. No ecchymosis Neuro: CN II-XII grossly intact. No nuchal rigidity. MSK: No posterior calf tenderness bilaterally, homans sign negative bilaterally. Posterior tibialis and radial pulse +2 bilaterally. Sensation intact in upper and lower extremities. Full active ROM in upper and lower extremities, 5/5 stregnth. Course Vital Signs 09/04/18 09/04/18 09/04/18 18:14 18:56 19:01 Temperature 98.5 F Pulse Rate 103 H 94 Respiratory 22 22 24 Rate Blood Pressure 157/94 O2 Sat by Pulse 95 Oximetry 09/04/18 09/04/18 19:11 21:23 Temperature 97.9 F Pulse Rate 96 82 Respiratory 20 18 Rate Blood Pressure 118/72 O2 Sat by Pulse 97 Oximetry Medical Decision Making - Medical Decision Making 58-year-old male patient passed no history of hypertension, COPD, asthma, aortic dissection status post graft presents to ED with 1 day of wheezing, shortness of breath. Patient reports that he was doing her work outside with a mask on and started expressing asthma exacerbation. Patient reports that he was wheezing and having some mild shortness of breath. Patient force of this feels similar t o asthma that he has experienced in the past. Patient has a history complaining of a mild headache. Patient reports that he often expresses headaches and he has a asthma exacerbation. Patient denies worst headache of life. Patient states that headache was progressive onset, denies thunderclap. Patient states that is a pressure sensation intact occipital lobe region. Patient denies any changes in vision. Patient denies any other complaints. Patient denies any chest pain abdominal pain nausea vomiting or diarrhea. Patient vital signs within except for limits, afebrile. Physical exam displayed wheezing which resolved after breathing treatment. EKG ordered by advanced triage displayed no significant change from prior EKG. Chest x-ray revealed no acute process. Patient doing much better after breathing treatment. No respiratory distress, no labored breathing. Patient headache resolved. A review of patient's recent imaging displayed a CT chest, abdomen and pelvis on 08/26/18. This displayed multiple findings including findings concerning for endoleak of the descending thoracic aorta. Patient states that he did speak with his nurse practitioner home assessments who recommended patient presented to [facility] where he had the initial surgery performed. Patient states that he did not present down to [facility] and has appointment scheduled with his nurse practitioner home assessments in approximately one week. Patient was recommended to be transferred to [facility] for further evaluation. On repeated history patient continues to deny any chest pain, abdominal pain. Patient will be transferred via EMS.. Patient will be transported via private vehicle to [facility]. Patient prescribed albuterol inhaler and oriented steroids for asthma exacerbation. Case discussed with Dr. Coronel Accepting physician Dr. Espinoza. - EKG Data -: EKG Interpreted by Me (and dr coronel ) EKG Comments: Ventricular rate 98, TX interval 140, QRS 86, QT/QTC 350/446. Normal sinus rhythm, possible left atrial enlargement, left ventricular hypertrophy. Nonspecific ST and mildly. Abnormal QRST angle. No significant change from prior EKG. Disposition Clinical Impression: Asthma exacerbation Disposition: OTHER INSTITUTION NOT DEFINED Condition: Serious Instructions (If sedation given, give patient instructions): Asthma (ED) Additional Instructions: Please drive directly down to [facility] in [facility] [place]. After discharge please take medication as directed for asthma exacerbation. Prescriptions: predniSONE 50 mg PO DAILY #4 tab Albuterol Inhaler [Ventolin Hfa Inhaler] 1 - 2 puff INHALATION Q4-6H PRN #1 inhaler PRN Reason: Cough Is patient prescribed a controlled substance at d/c from ED?: No Referrals: Wenceslao Coles MD [Primary Care Provider] - 1-2 days - Out of Hospital Transfer - Req. Specs Out of Hospital Transfer - Requested Specifics: Other Emergency Center ([facility])
[2018-09-04 21:23] VITALS: PULSE 82; RESP 18; TEMP 97.9
[2018-09-04 23:21] VITALS: BP 122/73
== END 2018-09-04 23:20 | disposition other institution (70) ==
LOC: EC 18:09
DX: J45.901 Unspecified asthma with (acute) exacerbation (principal); I25.119 Atherosclerotic heart disease of native coronary artery with unspecified angina pectoris; I11.0 Hypertensive heart disease with heart failure; I50.22 Chronic systolic (congestive) heart failure; I25.2 Old myocardial infarction; Z79.02 Long term (current) use of antithrombotics/antiplatelets; Z79.82 Long term (current) use of aspirin; Z79.899 Other long term (current) drug therapy; Z87.891 Personal history of nicotine dependence; Z95.5 Presence of coronary angioplasty implant and graft
CPT/HCPCS: 94640; 71046; 99285; 96372; J2930

== ENCOUNTER → 2018-12-24 | Outpatient (CLI) | payer MEDICARE ==
[2018-12-24 10:19] LABS: Prothrombin Time 10.8 sec (9.0-12.0)
[2018-12-24 10:49] LABS: Basophils # (A) 0.2 k/uL (0-0.2); Basophils % (A) 3 %; Eosinophils # (A) 0.4 k/uL (0-0.7); Eosinophils % (A) 6 %; HCT 40.1 % (39.0-53.0); HGB 12.8 gm/dL (13.0-17.5); Lymphocytes % (A) 35 %; MCH 29.8 pg (25.0-35.0); MCHC 31.9 g/dL (31.0-37.0); MCV 93.4 fL (80.0-100.0); Mean Platelet Volume 7.1; Monocytes # (A) 0.5 k/uL (0-1.0); Monocytes % (A) 8 %; Neutrophils # (A) 2.7 k/uL (1.3-7.7); Neutrophils % (A) 45 %; Platelet Count 218 k/uL (150-450); RBC 4.29 m/uL (4.30-5.90); WBC 5.9 k/uL (3.8-10.6)
[2018-12-24 17:47] LABS: African American GFR (CKD) 63.7 (60.0-200.0); Albumin 4.1 g/dL (3.80-4.90); Albumin/Globulin Ratio 1.58 (1.60-3.17); Anion Gap 9.1 mmol/L (4.00-12.00); BUN/Creat Ratio 13.57 Ratio (12.00-20.00); Calcium 8.9 mg/dL (8.7-10.3); Carbon Dioxide 24.9 mmol/L (21.6-31.8); Globulin 2.6 g/dL (1.6-3.3); Potassium 4.3 mmol/L (3.5-5.5); Total Bilirubin 1.4 mg/dL (0.2-1.2); Total Protein 6.7 g/dL (6.2-8.2)
== END | disposition home or self-care (01) ==
LOC: LABWHC1 09:33
PROVIDERS: ATTEND Surgery
DX: I71.6 Thoracoabdominal aortic aneurysm, without rupture (principal)
CPT/HCPCS: 36415; 80053; 85025; 85610; 93005

== ENCOUNTER → 2019-01-05 | Outpatient (CLI) | payer MEDICARE, OTHER ==
--- NOTE | 2019-01-05 10:38 | CT ---
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 Combination Contrast CTA cervical carotids and [place] CTA cervical carotids with 3-D recons truction Contrast CTA of the cervical carotids was performed 3-D reconstruction imaging obtained at a separate workstation. Right carotid system: Mild plaque is seen of the right common carotid artery. There is mild plaque a lso noted at the carotid bulb and proximal ICA. No significant diameter reduction. ECA is patent. Right vertebral artery appears unremarkable. Left carotid system: Mild plaque is seen of the left common carotid artery. There is mild plaque als o noted at the carotid bulb and proximal ICA. No significant diameter reduction. ECA is patent. Lef t vertebral artery appears unremarkable. IMPRESSION: 1. No significant diameter reduction to account for the patient's symptoms. CTA [place] with 3-D reconstruction Contrast CTA of the [place] was performed 3-D reconstruction imaging obtained at a separate workstation. Vertebrobasilar system as well as intracranial portions of the internal carotid arteries and their ma lyric tributaries are patent. I do not see evidence for sizable aneurysm or vascular malformation. Pl ease note MRI provides greater sensitivity and specificity. Visualized brain appears grossly unremar kable. IMPRESSION: 1. No significant abnormality.
--- NOTE | 2019-01-05 14:47 | CT ---
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 Contrast CTA of the thoracic aorta was performed from the lung apex through the upper abdomen. 3D re construction imaging obtained at a separate workstation. CT Chest: THORACIC AORTA: Again noted is surgical repair of the aortic arch with high density noted on prior im aging of 08/26/2018 and 03/12/2016 unchanged. Normal variant again is noted of the left vertebral arter y from the aortic arch. At the site of prior surgical intervention again noted is linear intimal flap . No progression noted. Focal saccular outpouching of the left lateral aspect of the ascending thorac ic aorta remains unchanged and may reflect pseudoaneurysm versus a penetrating atheromatous ulcer. As cending thoracic aorta measures 5.1 cm versus 5.1 cm a previously with surrounding low density materi al unchanged from prior study as well. Distal descending thoracic aorta demonstrates stable [place] men of the 2.6 cm versus 2.6 cm previously. Small punctate foci of increased signal on postcontrast i maging within the distal thoracic aorta within the periaortic fluid collection relating to endoleak. Chronic dissection is noted of the abdominal aorta which is partially imaged to the level of the mid kidneys. [place] lumen remains unchanged. Visualized celiac axis and SMA appear patent without definit e dissection involvement. Renal arteries perfuse symmetrically. For complete evaluation of the abdomi nal aorta dedicated evaluation is advised. LUNGS: Paraseptal bulla are seen at the lung apices with moderate underlying centrilobular emphysemat ous change create minimal biapical pleural parenchymal scarring is also present. The lungs are grossl y clear, there is no concerning parenchymal mass or nodule identified. There is no pleural effusion o r pneumothorax seen. The tracheobronchial tree is patent. MEDIASTINUM: No evidence for mediastinal hematoma. The heart is not enlarged. No evidence for med iastinal mass or adenopathy. HILAR STRUCTURES: No evidence for mass. No hilar adenopathy is appreciated. IMPRESSION- 1. Dissection of the aortic arch at the site of surgical resection that is localized to the aortic ar ch. Aortic arch penetrating atheromatous ulcer versus pseudoaneurysm remains stable. 2. Stable appearing ascending thoracic aortic fluid/aneurysm with stable left lateral focal outpouchi ng towards the AP window. 3. Partially imaged abdominal aortic aneurysm with a chronic dissection.
== END ==
LOC: RADCTMAIN 07:12
PROVIDERS: ATTEND Surgery
DX: I71.6 Thoracoabdominal aortic aneurysm, without rupture (principal)
CPT/HCPCS: 70496; 70498; 71275; Q9967

== ENCOUNTER 2019-06-15 | Observation (INO) | payer MEDICARE | END 2019-06-17 14:20 | disposition home or self-care (01) | PROVIDERS: ADMIT Family Medicine | CPT/HCPCS: 96376 ×3; 96372 ×3; 96374; 96375; 99285; 36415; 94640 ×5; 94760 ×2; 93005; 83880; 80053; 80048; 82150; 83690; 83735; 84484; 85025; 85610; 85730; 87040; 84145; 71046; G0378 ×4; J1644 ×3; J2930 ×3; J0696 ==

== ENCOUNTER 2019-09-09 03:35 | Emergency (ER) | payer MEDICARE ==
[2019-09-09 03:47] VITALS: TEMP 97.8
[2019-09-09] MEDS ORDERED: ASPIRIN 81 MG PO STA (03:47)
[2019-09-09] MEDS ORDERED: SODIUM CHLORIDE 0.9% 500 ML 500 ML IV STA (03:47)
[2019-09-09] MEDS ORDERED: methylPREDNISolone SOD SUCCI 125 MG/2 ML VIAL IV STA (04:12)
[2019-09-09] MEDS ORDERED: IPRATROPIUM-ALBUTEROL 3 ML NEB INHALATION STA (04:12)
[2019-09-09 04:26] LABS: Basophils # (A) 0.1 k/uL (0-0.2); Basophils % (A) 2 %; Eosinophils # (A) 0.5 k/uL (0-0.7); Eosinophils % (A) 8 %; HCT 42.7 % (39.0-53.0); HGB 13.8 gm/dL (13.0-17.5); Hypochromasia Slight; Lymphocytes # (A) 2.2 k/uL (1.0-4.8); Lymphocytes % (A) 35 %; MCH 30.7 pg (25.0-35.0); MCHC 32.3 g/dL (31.0-37.0); MCV 95.1 fL (80.0-100.0); Mean Platelet Volume 7.6; Monocytes # (A) 0.7 k/uL (0-1.0); Monocytes % (A) 10 %; Neutrophils # (A) 2.6 k/uL (1.3-7.7); Neutrophils % (A) 42 %; Platelet Count 230 k/uL (150-450); RBC 4.49 m/uL (4.30-5.90); RDW 12.5 % (11.5-15.5); WBC 6.3 k/uL (3.8-10.6)
[2019-09-09 04:35] LABS: Partial Thromboplastin Time 24.7 sec (22.0-30.0); Prothrombin Time 10.3 sec (9.0-12.0)
[2019-09-09 04:38] LABS: Albumin 4.4 g/dL (3.5-5.0); Calcium 9.7 mg/dL (8.4-10.2); Magnesium 2.2 mg/dL (1.6-2.3); Potassium 4.2 mmol/L (3.5-5.1); Total Bilirubin 1.1 mg/dL (0.2-1.3); Total Protein 7.6 g/dL (6.3-8.2)
--- NOTE | 2019-09-09 04:45 | ED ---
SOB HPI - General Chief Complaint: Shortness of Breath Stated Complaint: Chest Pain, SOB Time Seen by Provider: 09/09/19 03:47 Source: patient Mode of arrival: ambulatory Limitations: no limitations - History of Present Illness Initial Comments: Delmy is a pleasant 59-year-old, very extensive past medical history most significant for known COPD CAD. Patient reports that on Friday he spent the night in [place] and slept outside of his mother's house. Patient states he believes this exacerbated his ALLERGIES and thus his COPD. Patient reports that since that time he felt like he can't catch his breath. Patient states that he feels like there is discomfort from trying to breathe so hard. He denies any chest pain, exertional pain or any pain that is similar to previous cardiac chest pain. Discomfort in breathing has been persistent since Friday night. Patient denies any associated fevers chills nausea or vomiting. He reports a minimally productive cough. He tried using his rescue inhaler one time. He does not have any nebulizers at home. He has not been on steroids since May. He does not follow with a residential life director. - Related Data Home Medications Medication Instructions Recorded Confirmed Carvedilol [Coreg] 12.5 mg PO Q12H 10/03/15 06/15/19 Furosemide [Lasix] 40 mg PO DAILY 10/03/15 06/15/19 Lisinopril 40 mg PO DAILY 10/03/15 06/15/19 Aspirin EC [Ecotrin Low Dose] 81 mg PO DAILY 09/25/16 06/15/19 Atorvastatin [Lipitor] 20 mg PO DAILY 09/25/16 06/15/19 Albuterol Inhaler (Mhu) [Ventolin 2 puff INHALATION RT-Q6H PRN 06/15/19 06/15/19 Hfa Inhaler (Mhu)] Previous Rx's Medication Instructions Recorded Benzonatate [Tessalon Perles] 100 mg PO TID #30 cap 06/17/19 Famotidine [Pepcid] 20 mg PO BID #30 tab 06/17/19 Montelukast [Singulair] 10 mg PO HS #30 tab 06/17/19 amLODIPine [Norvasc] 5 mg PO DAILY #0 06/17/19 predniSONE 0 mg PO DIRECTED #30 tab 06/17/19 traZODone HCL [Desyrel] 50 mg PO HS #30 tab 06/17/19 predniSONE [Deltasone] 40 mg PO DAILY #10 tab 09/09/19 Allergies Allergy/AdvReac Type Severity Reaction Status Date / Time No Known Allergies Allergy Verified 06/15/19 16:41 Review of Systems ROS Statement: Those systems with pertinent positive or pertinent negative responses have been documented in the HPI. ROS Other: All systems not noted in ROS Statement are negative. Past Medical History Past Medical History: Asthma, Coronary Artery Disease (CAD), Chest Pain / Angina, Heart Failure, COPD, Hyperlipidemia, Hypertension, Myocardial Infarction (PA), Vascular Disorder Additional Past Medical History / Comment(s): 2014 NSTEMI possibly, severe cardiomyopathy, chronic systolic CHF, cardiac murmur, aortic dissection with surgery at [facility], recent L caratid surgery in February 2019 at [facility], tracheobronchitis, vertigo at times Last Myocardial Infarction Date:: ?2014? History of Any Multi-Drug Resistant Organisms: None Reported Past Surgical History: Heart Catheterization Additional Past Surgical History / Comment(s): 02/2019 Pt states he had L caratid artery surgery at [facility] but unable to state exactly what was done, 2015 [place], 2016 repair dissecting aortic aneurysm at [facility], colonoscopy, circumcism. Past Anesthesia/Blood Transfusion Reactions: No Reported Reaction Additional Past Anesthesia/Blood Transfusion Reaction / Comment(s): Pt states he has never received blood. Past Psychological History: No Psychological Hx Reported Smoking Status: Current some day smoker - Past Family History Brother(s) Family Medical History: No Reported History Sister(s) Family Medical History: Diabetes Mellitus Daughter(s) Family Medical History: No Reported History Mother Family Medical History: Congestive Heart Failure (CHF), Myocardial Infarction (PA) Additional Family Medical History / Comment(s): Mother at age 34 in her sleep. Father Family Medical History: Cancer, Prostate Disorder Additional Family Medical History / Comment(s): prostate cancer and . General Exam - General Exam Comments Initial Comments: Physical Exam GENERAL: Patient is well-developed and well-nourished. Patient is nontoxic and well-hydrated and is in no distress. HENT: Normocephalic, Atraumatic. EYES: PERRL, EOMI PULMONARY: I'll do expiratory wheezing, decreased breath sounds at the bases CARDIOVASCULAR: There is a regular rate and rhythm ABDOMEN: Soft and nontender with normal bowel sounds. SKIN: Skin is clear with no lesions or rashes and otherwise unremarkable. : Deferred NEUROLOGIC: Patient is alert and oriented x3. Moving all extremities spontaneously MUSCULOSKELETAL: Normal extremities with adequate strength and full range of motion. No lower extremity swelling or edema. No calf tenderness. PSYCHIATRIC: Normal psychiatric evaluation. Limitations: no limitations Course Vital Signs 09/09/19 09/09/19 09/09/19 03:44 04:27 04:43 Temperature 97.8 F Pulse Rate 88 85 88 Respiratory 22 Rate Blood Pressure 152/91 O2 Sat by Pulse 97 Oximetry 09/09/19 06:00 Temperature Pulse Rate 73 Respiratory 18 Rate Blood Pressure 135/82 O2 Sat by Pulse 96 Oximetry Medical Decision Making - Medical Decision Making Patient seen and evaluated upon arrival this is a 59-year-old gentleman with known history of COPD presenting with 4 days of shortness of breath and difficulty in breathing. He adamantly denies any chest pain repeatedly states he knows this is not his heart. Patient does have mild expiratory wheezing. EKG nonischemic, initial EKG was obtained at 3:45 AM, rate is 90 rhythm is sinus leftward axis normal intervals OH 138 QRS 86 QTc [address] elevations or depressions no evidence of acute ischemia or infarction. Labs resulted with no significant abnormalities Poni is not elevated, BNP is not significantly elevated there is no leukocytosis Patient received DuoNeb and reported feeling much better oxygen was 96-98% while sleeping, heart rate in the 60s. Patient reported feeling much better at this time is comfortable with the plan for discharge home on oral steroids. Patient will be referred to a residential life director for follow-up. Close return parameters were discussed all questions pertaining care were answered patient was discharged home in stable condition. - Lab Data Result diagrams: 09/09/19 03:55 09/09/19 03:55 Lab Results 09/09/19 09/09/19 09/09/19 Range/Units 03:55 03:55 03:55 WBC 6.3 (3.8-10.6) k/uL RBC 4.49 (4.30-5.90) m/uL Hgb 13.8 (13.0-17.5) gm/dL Hct 42.7 (39.0-53.0) % MCV 95.1 (80.0-100.0) fL MCH 30.7 (25.0-35.0) pg MCHC 32.3 (31.0-37.0) g/dL RDW 12.5 (11.5-15.5) % Plt Count 230 (150-450) k/uL Neutrophils % 42 % Lymphocytes % 35 % Monocytes % 10 % Eosinophils % 8 % Basophils % 2 % Neutrophils # 2.6 (1.3-7.7) k/uL Lymphocytes # 2.2 (1.0-4.8) k/uL Monocytes # 0.7 (0-1.0) k/uL Eosinophils # 0.5 (0-0.7) k/uL Basophils # 0.1 (0-0.2) k/uL Hypochromasia Slight PT 10.3 (9.0-12.0) sec INR 1.0 (<1.2) APTT 24.7 (22.0-30.0) sec Sodium 139 (137-145) mmol/L Potassium 4.2 (3.5-5.1) mmol/L Chloride 103 (98-107) mmol/L Carbon Dioxide 29 (22-30) mmol/L Anion Gap 7 mmol/L BUN 13 (9-20) mg/dL Creatinine 1.23 (0.66-1.25) mg/dL Est GFR (CKD-EPI)AfAm 74 (>60 ml/min/1.73 sqM) Est GFR (CKD-EPI)NonAf 64 (>60 ml/min/1.73 sqM) Glucose 107 H (74-99) mg/dL Calcium 9.7 (8.4-10.2) mg/dL Magnesium 2.2 (1.6-2.3) mg/dL Total Bilirubin 1.1 (0.2-1.3) mg/dL AST 34 (17-59) U/L ALT 27 (4-49) U/L Alkaline Phosphatase 69 (38-126) U/L Troponin I (0.000-0.034) ng/mL NT-Pro-B Natriuret Pep pg/mL Total Protein 7.6 (6.3-8.2) g/dL Albumin 4.4 (3.5-5.0) g/dL 09/09/19 09/09/19 Range/Units 03:55 03:55 WBC (3.8-10.6) k/uL RBC (4.30-5.90) m/uL Hgb (13.0-17.5) gm/dL Hct (39.0-53.0) % MCV (80.0-100.0) fL MCH (25.0-35.0) pg MCHC (31.0-37.0) g/dL RDW (11.5-15.5) % Plt Count (150-450) k/uL Neutrophils % % Lymphocytes % % Monocytes % % Eosinophils % % Basophils % % Neutrophils # (1.3-7.7) k/uL Lymphocytes # (1.0-4.8) k/uL Monocytes # (0-1.0) k/uL Eosinophils # (0-0.7) k/uL Basophils # (0-0.2) k/uL Hypochromasia PT (9.0-12.0) sec INR (<1.2) APTT (22.0-30.0) sec Sodium (137-145) mmol/L Potassium (3.5-5.1) mmol/L Chloride (98-107) mmol/L Carbon Dioxide (22-30) mmol/L Anion Gap mmol/L BUN (9-20) mg/dL Creatinine (0.66-1.25) mg/dL Est GFR (CKD-EPI)AfAm (>60 ml/min/1.73 sqM) Est GFR (CKD-EPI)NonAf (>60 ml/min/1.73 sqM) Glucose (74-99) mg/dL Calcium (8.4-10.2) mg/dL Magnesium (1.6-2.3) mg/dL Total Bilirubin (0.2-1.3) mg/dL AST (17-59) U/L ALT (4-49) U/L Alkaline Phosphatase (38-126) U/L Troponin I <0.012 (0.000-0.034) ng/mL NT-Pro-B Natriuret Pep 345 pg/mL Total Protein (6.3-8.2) g/dL Albumin (3.5-5.0) g/dL Disposition Clinical Impression: COPD (chronic obstructive pulmonary disease) Disposition: HOME SELF-CARE Condition: Stable Instructions (If sedation given, give patient instructions): Chronic Bronchitis (ED) Prescriptions: predniSONE [Deltasone] 40 mg PO DAILY #10 tab Is patient prescribed a controlled substance at d/c from ED?: No Referrals: Wenceslao Coles MD [Primary Care Provider] - 1-2 days Cat Tillman MD [STAFF PHYSICIAN] - 1-2 days
--- NOTE | 2019-09-09 04:59 | XR ---
EXAMINATION TYPE: XR chest 2V DATE OF EXAM: 09/09/2019 COMPARISON: 06/15/2019 HISTORY: Chest pain TECHNIQUE: FINDINGS: Heart is normal. There is stent in the aortic arch. There are sternal wires. There are no h ilar masses. Lungs are clear of infiltrate. There is no pleural effusion. Bony thorax is intact. IMPRESSION: No active cardiopulmonary disease. There is probably some COPD. No change.
[2019-09-09 06:15] VITALS: BP 135/82; PULSE 73; RESP 18
== END 2019-09-09 06:44 | disposition home or self-care (01) ==
LOC: EC 03:35
DX: J44.9 Chronic obstructive pulmonary disease, unspecified (principal); I25.119 Atherosclerotic heart disease of native coronary artery with unspecified angina pectoris; I11.0 Hypertensive heart disease with heart failure; I50.22 Chronic systolic (congestive) heart failure; I25.2 Old myocardial infarction; E78.5 Hyperlipidemia, unspecified; F17.200 Nicotine dependence, unspecified, uncomplicated; Z79.02 Long term (current) use of antithrombotics/antiplatelets; Z79.82 Long term (current) use of aspirin; Z79.899 Other long term (current) drug therapy
CPT/HCPCS: 36415; 94640; 93005; 83880; 80053; 83735; 84484; 85025; 85610; 85730; 71046; 99285; 96374; 96361; J2930